=== PATIENT | female | born 1995 | race Caucasian/White ===

== ENCOUNTER 2020-10-31 07:17 | Emergency (ER) | payer BC ==
[~2020-10-31] VITALS: Ht 162.6 cm; Wt 53.1 kg
--- NOTE | 2020-10-31 07:47 | NUR ---
Patient was seen by Dr Vasques. 12 lead EKG done, labs drawn. Covid swab done and sent to lab. Patient is awake and alert in no distress
[2020-10-31 07:51] LABS: BASOPHILS # (AUTO) 0.1 K/uL (0.0-8.0); BASOPHILS % (AUTO) 0.3 % (0.0-2.0); EOSINOPHILS # (AUTO) 0.1 K/uL (0.0-0.7); EOSINOPHILS % (AUTO) 0.3 % (0.0-7.0); HEMATOCRIT 38.8 % (31.2-41.9); HEMOGLOBIN 12.8 g/dL (10.9-14.3); LYMPHOCYTES # (AUTO) 1.2 K/uL (20.0-40.0); LYMPHOCYTES % (AUTO) 4.9 % (20.5-51.5); MEAN CORPUSCULAR HEMOGLOBIN 27.5 uug (24.7-32.8); MEAN CORPUSCULAR HGB CONC 33 g/dL (32.3-35.6); MEAN CORPUSCULAR VOLUME 83.3 fL (75.5-95.3); MONOCYTES # (AUTO) 0.7 K/uL (2.0-10.0); NEUTROPHILS # (AUTO) 21.8 K/uL (1.8-8.9); NEUTROPHILS % (AUTO) 91.5 % (38.5-71.5); PLATELET COUNT (AUTO) 261 K/uL (179-408); RED BLOOD CELL COUNT(AUTO) 4.66 MIL/uL (3.63-4.92); WHITE BLOOD COUNT (AUTO) 23.8 K/uL (3.8-11.8)
[2020-10-31 08:00] LABS: CREATININE 0.8 mg/dL (0.6-1.3); POTASSIUM 3.3 mmol/L (3.5-5.1)
[2020-10-31] MEDS ORDERED: IOHEXOL 350 100 ML INFUS..BTL ONE (09:02)
[2020-10-31] MEDS ORDERED: IV NORMAL SALINE 250 ML IV ONE (09:02)
[2020-10-31] MEDS ORDERED: SWABABLE VALVE TRANSFER SET EA MC ONE (09:02)
[2020-10-31 09:14] LABS: *URINE HCG, QUAL NEG (NEGATIVE)
--- NOTE | 2020-10-31 10:30 | NUR ---
waiting for test results
--- NOTE | 2020-10-31 11:32 | NUR ---
Still waiting for radiologist to read CT scan. Georgina called radiology twice. Patient is awake and alert with no new complaints. Denies SOB
--- NOTE | 2020-10-31 11:45 | NUR ---
DC AND FOLLOW UP INSTRUCTIONS GIVEN AND EXPLAINED TO PATIENT WHO STATES SHE UNDERSTANDS ALL INSTRUCTIONS.
[2020-10-31] MEDS ORDERED: AZIT250T13 PO (11:46)
--- NOTE | 2020-10-31 11:46 | NUR ---
IV removed. Catheter intact and site benign. Pressure and 4x4 gauze applied to site. No bleeding noted.
[2020-10-31] MEDS ORDERED: AMOX-430 PO (11:54)
== END 2020-10-31 12:09 | disposition home or self-care (01) ==
LOC: ER 07:17
DX: R06.00 Dyspnea, unspecified (principal); R05 Cough; Z20.822 Contact with and (suspected) exposure to COVID-19; R00.0 Tachycardia, unspecified; R91.8 Other nonspecific abnormal finding of lung field; K21.9 Gastro-esophageal reflux disease without esophagitis
CPT/HCPCS: 36415; 71045; 71260; 80048; 84484; 84703; 85025; 85379; 87426; 93005; 99285; Q9967; 70030-TC; A4663; J7050